=== PATIENT | male | born 1940 | race Caucasian/White ===

== ENCOUNTER 2018-05-11 07:12 | Inpatient (IN) ==
[2018-05-05 17:02] LABS: Basophils # (Auto) 0 K/mcL (0.0-0.3); Basophils % (Auto) 0.5 % (0.0-2.0); Eosinophils # (Auto) 0.5 K/mcL (0.0-0.7); Eosinophils % (Auto) 7.4 % (0.0-7.0); Granulocytes % (Auto) 63.1 % (38.0-78.0); Lymphocytes # (Auto) 1.3 K/mcL (1.5-4.8); Lymphocytes % (Auto) 20.2 % (15.5-49.0); Mean Cell Volume 97.5 fL (80.0-100.0); Mean Corpuscular HGB Conc 33.8 g/dL (31.0-36.0); Monocytes # (Auto) 0.6 K/mcL (0.1-0.9); Monocytes % (Auto) 8.8 % (1.0-12.0); Platelet Count 265 K/mcL (140-440); RBC 4.36 M/mcL (4.50-5.90); Red Cell Distribution Width 13.7 % (11.5-14.5)
[2018-05-05 17:08] LABS: Appearance,Urine CLEAR; Bilirubin,Urine NEG (NEG); Color,Urine YELLOW; Glucose,Urine (UA) NEGATIVE (NEG); Leukocyte Esterase,Urine NEG /uL (NEG); Protein,Urine NEG (NEG); Urine Blood NEG mg/dL (<0.03); Urobilinogen,Urine NEG (NEG)
[2018-05-05 18:24] LABS: Blood Urea Nitrogen 29 mg/dl (8-23)
[~2018-05-11 07:12] MED LIST: 0.9 % SODIUM CHLORIDE 9 ML, KETOROLAC 30 MG, ROPIVACAINE HCL/PF 49.5 ML, EPINEPHrine 0.... IJ SCH; CELECOXIB 200 MG CAPSULE PO SCH; PREGABALIN 75 MG CAPSULE PO SCH; ceFAZolin 1 GM VIAL IV SCH; oxyCODONE 10 MG TAB.ER.12H PO SCH
[2018-05-11] MEDS ORDERED: ONDANSETRON 4 MG/2 ML VIAL IV ONE (12:00)
[2018-05-11] MEDS ORDERED: MIDAZOLAM 2 MG/2 ML VIAL IV ONE (12:00)
[2018-05-11] MEDS ORDERED: PROPOFOL 200 MG/20 ML VIAL IV ONE (12:00)
[2018-05-11] MEDS ORDERED: TRANEXAMIC ACID 1,000 MG/10 ML VIAL IV ONE (12:00)
[2018-05-11] MEDS ORDERED: GLYCOPYRROLATE 0.2 MG/ML VIAL IV ONE (12:00)
[2018-05-11] MEDS ORDERED: LIDOCAINE HCL/PF 100 MG/5 ML SYRINGE IV ONE (12:00)
[2018-05-11] MEDS ORDERED: ROPIVACAINE HCL/PF 30 ML VIAL IJ ONE (12:00)
[2018-05-11] MEDS ORDERED: KETAMINE 100 MG/ML ML IV ONE (12:00)
[2018-05-11] MEDS ORDERED: IPRATROPIUM/ALBUTEROL 3 ML AMPUL.NEB NEB PRN (13:16)
[2018-05-11] MEDS ORDERED: fentaNYL 100 MCG/2 ML VIAL IV PRN (13:16)
[2018-05-11] MEDS ORDERED: METHOCARBAMOL 1,000 MG/10 ML VIAL IV PRN (13:16)
[2018-05-11] MEDS ORDERED: MEPERIDINE 25 MG/ML SYRINGE IV PRN (13:16)
[2018-05-11] MEDS ORDERED: ACETAMINOPHEN 1,000 MG/100 ML BOTTLE IV ONE (13:16)
[2018-05-11] MEDS ORDERED: LACTATED RINGERS 1,000 ML IV SCH (13:30)
[2018-05-11] MEDS ORDERED: POLYETHYLENE GLYCOL 3350 17 GM PACKET PO PRN (13:45)
[2018-05-11] MEDS ORDERED: FLEETS ADULT ENEMA PR PRN (13:45)
[2018-05-11] MEDS ORDERED: TRANEXAMIC ACID 1,000 MG/10 ML VIAL IV SCH (13:45)
[2018-05-11] MEDS ORDERED: MAGNESIUM HYDROXIDE 30 ML ORAL.SUSP PO PRN (13:45)
[2018-05-11] MEDS ORDERED: ONDANSETRON 4 MG/2 ML VIAL IV PRN (13:45)
[2018-05-11] MEDS ORDERED: BISACODYL 10 MG SUPP.RECT PR PRN (13:45)
[2018-05-11] MEDS ORDERED: BENZOCAINE/MENTHOL 1 LOZENGE PO PRN (13:45)
--- NOTE | 2018-05-11 13:45 | Brief Operative Note ---
Date of procedure: 05/11/18 Pre-op diagnosis: Right knee severe DJD Post-op diagnosis: same Procedure: Right robotic assisted total knee arthroplasty Grafts/Implants: Yes ([place] Triathlon CR 5 femur, 5 tibia, 9mm insert, 36 patella) Anesthesia: spinal, GLMA Findings: severe arthritis Complications: none Surgeon: Theo Hawley [employer] Architect: Gerardo Sanchez Estimated blood loss (cc): 30 Specimens Removed/Pathology: none sent Condition: stable Disposition: PACU
[2018-05-11] MEDS ORDERED: WARFARIN 2.5 MG TABLET PO SCH (14:00)
[2018-05-11] MEDS ORDERED: METOPROLOL TARTRATE 5 MG/5 ML VIAL IV ONE (14:11)
--- NOTE | 2018-05-11 14:38 | XRay Report ---
CLINICAL INFORMATION: Post-op total knee. COMPARISON: None. FINDINGS: Total knee prostheses is anatomically aligned. There is no osseous abnormality. Periarticular gas and soft tissue swelling seen as expected. IMPRESSION: Negative Interpreted and Authenticated by: Dave Lemus 05/11/18
[2018-05-11] MEDS: KETOROLAC 15 MG/ML VIAL IV SCH ×2 (17:25→23:57)
[2018-05-11] MEDS: HYDROcodone/APAP 10/325MG TABLET PO PRN (17:27)
--- NOTE | 2018-05-11 17:29 | Operative Note ---
DATE OF OPERATION: 05/11/2018 PREOPERATIVE DIAGNOSIS: Right knee severe osteoarthritis. POSTOPERATIVE DIAGNOSIS: Right knee severe osteoarthritis. PROCEDURE PERFORMED: Right robotic-assisted total knee arthroplasty placing the [place] Triathlon size 5 cruciate retaining femoral component, size 5 tibial baseplate, a 9 mm X3 tibial insert with a 36 mm patellar button. SURGEON: Theo Hawley M.D. PAPER BALING MACHINE OPERATOR: Moses Sanchez PA-C. ANESTHESIA: Spinal plus general. DRAINS: None. SPECIMENS: Bone cuts which were discarded. BLOOD LOSS: 30 mL. POSTOPERATIVE CONDITION: Stable. INDICATIONS FOR SURGERY: This is a 78-year-old male who has had longstanding worsening right knee pain. Radiographs showed severe hnzo-kw-eydu osteoarthritis with valgus deformity. FINDINGS AT SURGERY: Valgus [id number] osteoarthritis. Post implantation showed satisfactory limb alignment, patellar tracking, and joint stability. PROCEDURE IN DETAIL: The patient had been seen preoperatively. Informed consent had been obtained after discussion of risks and benefits of surgery. Risks including, but not limited to, bleeding; infection, possibly requiring implant removal and prolonged IV antibiotics; injury to nerves, blood vessels, other surrounding structures; anesthetic risks; incomplete or no resolution of symptoms; stiffness; swelling; instability; DVT and pulmonary embolus risks; and the possibility of needing further revision surgery. He understood and wished to proceed. Correct operative site was marked in preoperative holding and patient received spinal anesthesia. He was then taken to the operating room and LMA general given. The right lower extremity was carefully prepped and draped in normal sterile fashion, and a time-out was performed verifying patient name, operative site, and plan. Esmarch was used to exsanguinate the extremity and tourniquet was inflated. Midline incision was made with a scalpel through skin and subcutaneous tissue. Hemostasis was obtained with Bovie cautery. Irrisept was irrigated and then a medial parapatellar arthrotomy made. Subperiosteal exposure was done of the anterior medial tibia, a limited amount. Anterior horns of meniscus were removed and ACL was transected and fat pad removed. We then placed our femoral and tibial checkpoints. Two stab incisions were made over the femur and two over the tibia and bicortical pins were placed. The arrays were then connected and then hip center of rotation was identified. We used the green probe then to identify the medial and lateral malleoli and then do double-checks of our femoral and tibial check points. We then used the blue probe to do our mapping. After this was completed, osteophytes were removed, and then the spoons were used to check our flexion- extension gaps. Once we did this, we adjusted our implant position to give us between 17 and 18 mm gaps. Once we liked our implant size and position, we then used the robotic arm to make our bone cuts. We then prepared the tibia and placed the trial. We elevated the femur and removed posterior osteophytes with a curved osteotome and curet. Femoral trial was placed, and the 9 insert trial was impacted. The knee was taken into extension which was less than 10 degrees short of full. Stability was good. We then used a freehand technique to resect the patella. We sized this to a 36 and then holes were drilled. Patellar trial was placed. A lateral facetectomy was performed. We checked our patellar tracking, which was good without significant tilt or subluxation. We also checked our thickness of our implant and patella, and it was within a millimeter of the pre-resection. We went ahead then and removed our trial components. Definitive implants were opened. Antibiotic cement was mixed. The joint was filled with Irrisept, after a minute pulse lavaged with saline, and then CO2 gun used to clean and dry cancellous bone surfaces. We cemented the tibia. Excess cement was removed. We cemented the femur and excess cement removed, and then the 9 insert trial was placed. The knee was taken into extension and then the patellar button was cemented. The joint was filled with Irrisept. Checkpoints were removed. We injected pain cocktail in the pericapsular and subcutaneous tissues. Our extension showed less than 10 degrees short of full, so we went ahead and removed our arrays and pins. After cement had fully hardened, we pulse lavaged copiously with saline and then removed the insert trial. We injected pain cocktail in the posterior capsule and then Irrisept was irrigated onto the tray and then the definitive insert was impacted. The joint was then pulse lavaged with saline and knee was placed in 45 degrees of flexion. Interrupted #2 FiberWire [id number] were used around the superior quadrant of the patella, interrupted [id number] Vicryls used around the inferior quadrant, running #1 Vicryl for patellar tendon and quad tendon. Checkpoints had been removed prior to closure. Final Irrisept irrigation was done, after a minute final pulse lavage, and then 2-0 Monocryl for subcutaneous and efrem for skin. Xeroform and sterile dressing applied. Tourniquet was released and patient was awakened, extubated, and transferred to recovery in stable condition. [email or web address]:alireza Job ID: [id number] Doc ID: [id number] Theo Hawley MD
[2018-05-11] MEDS: 0.9 % SODIUM CHLORIDE 1,000 ML IV SCH (17:48)
[2018-05-11] MEDS: 0.9 % SODIUM CHLORIDE 10 ML SYRINGE IV SCH ×2 (17:51→20:52)
[2018-05-11] MEDS: METOPROLOL TARTRATE 50 MG TABLET PO SCH (20:51)
[2018-05-11] MEDS: DOCUSATE SODIUM 100 MG CAPSULE PO SCH (20:51)
[2018-05-11] MEDS: ceFAZolin 1 GM VIAL IV SCH (20:52)
[2018-05-11] MEDS ORDERED: ASPIRIN 325 MG ENTERIC COATED TABLET PO SCH (21:00)
[2018-05-11] MEDS ORDERED: SENNOSIDES 1 TABLET PO SCH (21:00)
[2018-05-12] MEDS: ceFAZolin 1 GM VIAL IV SCH (03:10)
[2018-05-12] MEDS: 0.9 % SODIUM CHLORIDE 1,000 ML IV SCH ×2 (03:23→09:19)
[2018-05-12] MEDS: KETOROLAC 15 MG/ML VIAL IV SCH (06:02)
[2018-05-12] MEDS: HYDROcodone/APAP 10/325MG TABLET PO PRN (06:03)
[2018-05-12] MEDS: 0.9 % SODIUM CHLORIDE 10 ML SYRINGE IV SCH (06:06)
--- NOTE | 2018-05-12 07:56 | Discharge Summary ---
Providers - Providers Patient information: Note initiated : 05/12/18 at 7:54 am Service Date, if different from initiated Date: [] Patient: Kemal Moody 78 y/o M admitted on 05/11/18 for Right Mello Total Knee Arthroplasty. Chief Complaint: [] Discharge date: 05/12/18 Hospitalization Hospital course: Pt was admitted for a R TKA. Admitted on day of procedure. Discharged post-op day 1. Will use ASA for DVT prophylaxis. f/u at [facility] in 2 weeks. Discharge diagnosis: R Knee OA Exam - Exam Clean and dry: Yes Weight bearing status: as tolerated Ortho Discharge - TKA - Patient Instructions Diet: Regular Diet Activity: activity as tolerated Total Knee Protocol: For Total Knee: Start ROM NATALIA with stationary bike or rocking chair. Work on gaining full extension of knee. Posterior dislocation precautions provided. Hip abductor strengthening and gait training instructions provided. Apply Cryocuff as instructed. Dressing Care: May shower in 2 days - Follow Up Plan Follow Up Appointments: Gerardo Sanchez PA-C [Physician Supervisor Type Bar And Segment] - 05/26/18 2:20 pm Disposition: Home, Self-Care Prognosis: Good Rehab Potential: Good Overall status at discharge: patient is progressing back to baseline - Orders For Discharge Prescriptions: HYDROcodone/APAP 10/325MG [[place] 10-325Mg] 1 - 2 tab PO Q4HP PRN #90 tab PRN Reason: Pain Level 3-6 Pending Studies Resuscitation Status Full Code Diet Consistent Carbohydrate Diet Start WedMay 11 1347 Hydrocodone Bitart/Acetaminophen ([place] 10/325mg) 0 tab PO Q4HP PRN PRN Reason: PAIN LEVEL 3-6 Last Admin: 05/12/18 06:03 Dose: 1 tab Admin: 05/11/18 17:27 Dose: 1 tab Docusate Sodium (Colace) 100 mg PO BID [facility] Last Admin: 05/11/18 20:51 Dose: 100 mg Sodium Chloride (Sodium Chloride 0.9%) 1,000 mls @ 100 mls/hr IV .Q10H [facility] Last Admin: 05/12/18 03:23 Dose: 100 mls/hr Infusion: 05/12/18 03:23 Dose: 0 mls/hr Admin: 05/11/18 17:48 Dose: 100 mls/hr Ketorolac Tromethamine (Toradol) 15 mg IV Q6 [facility] Stop: 05/13/18 12:01 Last Admin: 05/12/18 06:02 Dose: 15 mg Admin: 05/11/18 23:57 Dose: 15 mg Admin: 05/11/18 17:25 Dose: 15 mg Metoprolol Tartrate (Lopressor) 50 mg PO BID [facility] Last Admin: 05/11/18 20:51 Dose: 50 mg Senna (Senokot) 2 tab PO HS [facility] Last Admin: 05/11/18 20:51 Dose: 2 tab Sodium Chloride (Saline Flush) 10 ml IV Q8 [facility] Last Admin: 05/12/18 06:06 Dose: Not Given Admin: 05/11/18 20:52 Dose: Not Given Admin: 05/11/18 17:51 Dose: Not Given Warfarin Sodium (Coumadin) 2.5 mg PO WeSa@1400 [facility] Last Admin: 05/11/18 17:25 Dose: 2.5 mg Shift Summary 05/12/18 05:27 Shift Summary by Radha Alcaraz&Vickie VSS on RA. Slept for most part. Required no prn pain med tonight, received scheduled Toradol, encouraged him to take a pain pill this am in preparation for PT. IV in left hand infusing NS at 100mls/hr. Has voided minimal amount, last bladder scan at 0500 was 500-560, minimal urge to void, encouraged fluids. He wants to wait longer before doing cath, he is in no distress at this time. Drsg to left knee has some breakthrough drainage that was reinforced with no new drainage noted. Up with SBA and FWW. Ambulated in halls to nurses station and back. 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 Initialized on 05/12/18 05:27 - END OF NOTE
[2018-05-12] MEDS ORDERED: POTASSIUM CHLORIDE 10 MEQ TABLET PO SCH (08:00)
[2018-05-12] MEDS: METOPROLOL TARTRATE 50 MG TABLET PO SCH (08:35)
[2018-05-12] MEDS: DOCUSATE SODIUM 100 MG CAPSULE PO SCH (08:35)
[2018-05-12] MEDS ORDERED: SIMVASTATIN 40 MG TABLET PO SCH (09:00)
[2018-05-12] MEDS ORDERED: FUROSEMIDE 40 MG TABLET PO SCH (09:00)
[2018-05-12] MEDS ORDERED: MULTIVIT,THER IRON,CA,FA & MIN 1 TABLET PO SCH (09:00)
[2018-05-12] MEDS ORDERED: ENOXAPARIN 30 MG/0.3 ML SYRINGE SQ SCH (09:00)
[2018-05-12] MEDS ORDERED: WARFARIN 5 MG TABLET PO SCH (14:00)
== END 2018-05-12 11:35 | disposition home or self-care (01) | DRG 470 ==
LOC: MEDSUR 07:12
PROVIDERS: ADMIT Orthopaedic Surgery; ATTEND Orthopaedic Surgery
CPT/HCPCS: 62322; 97162; C1713; C1776; J0131; J0690; J1650; J1885; J2001; J2250; J2405; J2795; J7030; J7040; J7120